=== PATIENT | female | born 1970 | race Native Hawaiian/Other Pacific Islander ===

== ENCOUNTER 2016-06-27 16:40 | Emergency (ER) | payer OTHER ==
[~2016-06-27] VITALS: Ht 160 cm; Wt 61.7 kg
[2016-06-27 17:33] LABS: PLATELET COUNT 197 K/uL (152-353)
[2016-06-27 17:49] LABS: POTASSIUM 4.1 mmol/L (3.6-5.2); SODIUM 135 mmol/L (136-145)
[2016-06-27 18:15] VITALS: BP 105/65; TEMP 97.6
== END 2016-06-27 18:15 | disposition home or self-care (01) ==
LOC: ED 16:40
DX: J02.0 Streptococcal pharyngitis (principal)
CPT/HCPCS: 36415; 80053; 85027; 87804; 87880; 99283

== ENCOUNTER 2016-08-12 20:36 | Outpatient (CLI) | payer OTHER | END 2016-08-12 20:46 | disposition short-term general hospital (02) | LOC: AMB 20:36 | DX: R55 Syncope and collapse (principal); R40.4 Transient alteration of awareness | CPT/HCPCS: A0425; A0427 ==

== ENCOUNTER 2016-08-12 20:48 | Emergency (ER) | payer OTHER ==
[~2016-08-12] VITALS: Ht 157.5 cm; Wt 59.0 kg
[2016-08-12 21:33] LABS: PLATELET COUNT 195 K/uL (152-353)
[2016-08-12 21:51] LABS: POTASSIUM 3.5 mmol/L (3.6-5.2)
[2016-08-12 22:24] VITALS: BP 120/62; TEMP 98.7
== END 2016-08-12 22:25 | disposition home or self-care (01) ==
LOC: ED 20:48
DX: F14.10 Cocaine abuse, uncomplicated (principal)
CPT/HCPCS: 80053; 80307; 81000; 85027; 93005; 96360; 99284; G0479

== ENCOUNTER 2016-08-20 18:52 | Emergency (ER) | payer OTHER ==
[~2016-08-20] VITALS: Ht 160 cm; Wt 52.2 kg
[2016-08-20 19:36] LABS: POTASSIUM 3.9 mmol/L (3.6-5.2)
[2016-08-20 19:39] LABS: PLATELET COUNT 314 K/uL (152-353)
[2016-08-20 20:16] VITALS: BP 07/69; TEMP 98.4
== END 2016-08-20 20:20 | disposition home or self-care (01) ==
LOC: ED 18:52
DX: F20.9 Schizophrenia, unspecified (principal); R45.1 Restlessness and agitation; N39.0 Urinary tract infection, site not specified
CPT/HCPCS: 80053; 80307; 80320; 80329; 81000; 85027; 87086; 87088; 99283; G0479

== ENCOUNTER 2016-08-22 12:58 | Outpatient (CLI) | payer OTHER | END 2016-08-22 13:14 | disposition short-term general hospital (02) | LOC: AMB 12:58 | DX: M25.572 Pain in left ankle and joints of left foot (principal); M25.472 Effusion, left ankle; X50.1XXA Overexertion from prolonged static or awkward postures, initial encounter; Y92.098 Other place in other non-institutional residence as the place of occurrence of the external cause | CPT/HCPCS: A0425; A0427 ==

== ENCOUNTER 2016-08-22 13:13 | Emergency (ER) | payer OTHER ==
[~2016-08-22] VITALS: Ht 160 cm; Wt 56.7 kg
[2016-08-22 13:40] VITALS: TEMP 97.8
[2016-08-22 15:05] VITALS: BP 128/82
== END 2016-08-22 15:06 | disposition home or self-care (01) ==
LOC: ED 13:13
DX: S93.402A Sprain of unspecified ligament of left ankle, initial encounter (principal); X50.1XXA Overexertion from prolonged static or awkward postures, initial encounter; Y92.098 Other place in other non-institutional residence as the place of occurrence of the external cause
CPT/HCPCS: 96372; 99283; J1885

== ENCOUNTER 2016-08-23 23:10 | Emergency (ER) | payer OTHER ==
[~2016-08-23] VITALS: Ht 165.1 cm; Wt 52.2 kg
[2016-08-23 23:36] LABS: PLATELET COUNT 249 K/uL (152-353)
[2016-08-23 23:39] LABS: POTASSIUM 3.7 mmol/L (3.6-5.2)
[2016-08-25 12:09] VITALS: BP 108/75; TEMP 98.1
== END 2016-08-25 12:09 | disposition home or self-care (01) ==
LOC: ED 23:10
PROVIDERS: Emergency Medicine
DX: R45.851 Suicidal ideations (principal)
CPT/HCPCS: 80053; 80307; 80320; 80329; 81000; 85027; 87088; 96372; 99285; G0479; J2060; J3486

== ENCOUNTER 2016-09-11 18:54 | Emergency (ER) | payer OTHER ==
[~2016-09-11] VITALS: Ht 160 cm; Wt 54.4 kg
[2016-09-11 20:34] VITALS: BP 110/84; TEMP 98.2
== END 2016-09-11 20:35 | disposition home or self-care (01) ==
LOC: ED 18:54
DX: M25.572 Pain in left ankle and joints of left foot (principal)
CPT/HCPCS: 99282; J2060; J2930

== ENCOUNTER 2016-09-12 13:05 | Emergency (ER) | payer OTHER ==
[~2016-09-12] VITALS: Ht 160 cm; Wt 58.1 kg
[2016-09-12 15:54] VITALS: BP 104/60; TEMP 98.3
== END 2016-09-12 14:30 | disposition home or self-care (01) ==
LOC: ED 13:05
DX: Z04.41 Encounter for examination and observation following alleged adult rape (principal)
CPT/HCPCS: 99283

== ENCOUNTER 2016-09-17 14:40 | Emergency (ER) | payer OTHER ==
[~2016-09-17] VITALS: Ht 172.7 cm; Wt 90.7 kg
[2016-09-17 15:15] VITALS: BP 110/68; TEMP 98.2
[2016-09-17 15:34] LABS: PLATELET COUNT 223 K/uL (152-353)
[2016-09-17 15:45] LABS: POTASSIUM 3.8 mmol/L (3.6-5.2); SODIUM 138 mmol/L (136-145)
== END 2016-09-18 08:07 | disposition home or self-care (01) ==
LOC: ED 14:40
PROVIDERS: Emergency Medicine
DX: F23 Brief psychotic disorder (principal)
CPT/HCPCS: 80053; 80307; 80320; 80329; 81000; 85027; 99285; G0479

== ENCOUNTER 2017-02-12 19:28 | Emergency (ER) | payer OTHER | END 2017-02-12 20:43 | disposition home or self-care (01) | LOC: ED 19:28 | DX: N89.8 Other specified noninflammatory disorders of vagina (principal); L29.9 Pruritus, unspecified ==

== ENCOUNTER 2017-02-13 15:47 | Emergency (ER) | payer OTHER ==
[~2017-02-13] VITALS: Ht 160 cm; Wt 68.0 kg
[2017-02-13 16:00] VITALS: BP 94/58; TEMP 97.8
== END 2017-02-13 16:26 | disposition home or self-care (01) ==
LOC: ED 15:47
DX: N89.8 Other specified noninflammatory disorders of vagina (principal)
CPT/HCPCS: 99281

== ENCOUNTER 2017-07-21 15:24 | Outpatient (CLI) | payer OTHER | END 2017-07-21 15:28 | disposition short-term general hospital (02) | LOC: AMB 15:24 | DX: M25.561 Pain in right knee (principal); M54.2 Cervicalgia; M54.5 Low back pain; V49.88XA Car occupant (driver) (passenger) injured in other specified transport accidents, initial encounter; Y92.488 Other paved roadways as the place of occurrence of the external cause | CPT/HCPCS: A0425; A0427 ==

== ENCOUNTER 2017-07-21 15:24 | Outpatient (CLI) | payer OTHER | END 2017-07-21 15:28 | disposition short-term general hospital (02) | LOC: AMB 15:24 | DX: M25.561 Pain in right knee (principal); M54.2 Cervicalgia; M54.5 Low back pain; V49.88XA Car occupant (driver) (passenger) injured in other specified transport accidents, initial encounter; Y92.488 Other paved roadways as the place of occurrence of the external cause | CPT/HCPCS: A0425; A0427 ==

== ENCOUNTER 2017-07-21 15:33 | Emergency (ER) | payer OTHER ==
[~2017-07-21] VITALS: Ht 160 cm; Wt 65.8 kg
[2017-07-21 15:46] VITALS: TEMP 97
[2017-07-21 17:52] VITALS: BP 122/74
== END 2017-07-21 17:54 | disposition home or self-care (01) ==
LOC: ED 15:33
DX: S80.01XA Contusion of right knee, initial encounter (principal); S00.93XA Contusion of unspecified part of head, initial encounter; S10.93XA Contusion of unspecified part of neck, initial encounter; S20.219A Contusion of unspecified front wall of thorax, initial encounter; R07.89 Other chest pain; R10.9 Unspecified abdominal pain; V49.50XA Passenger injured in collision with unspecified motor vehicles in traffic accident, initial encounter
CPT/HCPCS: 96372; 99283; J1885

== ENCOUNTER 2018-06-29 09:28 | Outpatient (CLI) | payer OTHER | END 2018-06-29 19:38 | disposition home or self-care (01) | LOC: MAMMO 09:28 | DX: Z12.31 Encounter for screening mammogram for malignant neoplasm of breast (principal) ==

== ENCOUNTER 2019-04-29 17:38 | Outpatient (CLI) | payer OTHER | END 2019-04-29 17:52 | disposition short-term general hospital (02) | LOC: AMB 17:38 | DX: R41.82 Altered mental status, unspecified (principal) | CPT/HCPCS: A0425; A0427 ==

== ENCOUNTER 2019-04-29 18:03 | Emergency (ER) | payer OTHER ==
[~2019-04-29] VITALS: Ht 160 cm; Wt 64.9 kg
[2019-04-29 19:42] LABS: SODIUM 133 mmol/L (136-145)
[2019-04-29 19:53] LABS: PLATELET COUNT 288 K/uL (152-353)
[2019-04-30 20:45] VITALS: BP 115/68; TEMP 97.8
[2019-05-01] MEDS ORDERED: QUETIAPINE100 MG PO (12:25)
[2019-05-01] MEDS ORDERED: TRAZODONE HYDR150 MG PO (12:25)
[2019-05-01] MEDS ORDERED: PAROXETINE30 MG PO (12:26)
== END 2019-04-30 20:45 | disposition home or self-care (01) ==
LOC: ED 18:03
PROVIDERS: Emergency Medicine
DX: F31.9 Bipolar disorder, unspecified (principal); R00.0 Tachycardia, unspecified
CPT/HCPCS: 80053; 80307; 81000; 82550; 82553; 84484; 85027; 87077; 87086; 87088; 87186; 93005; 96360; 96361; 96365; 96372; 99285; J0696; J3486

== ENCOUNTER 2019-05-01 10:28 | Emergency (ER) | payer OTHER ==
[~2019-05-01] VITALS: Ht 160 cm; Wt 64.9 kg
[2019-05-01 12:07] LABS: PLATELET COUNT 309 K/uL (152-353)
[2019-05-01] MEDS ORDERED: TRAZODONE HYDR150 MG PO (12:25)
[2019-05-01] MEDS ORDERED: QUETIAPINE100 MG PO (12:25)
[2019-05-01] MEDS ORDERED: PAROXETINE30 MG PO (12:26)
[2019-05-02 00:17] VITALS: BP 152/79; TEMP 97.9
== END 2019-05-02 00:17 | disposition other institution (70) ==
LOC: ED 10:28
PROVIDERS: Emergency Medicine
DX: F31.9 Bipolar disorder, unspecified (principal); F20.0 Paranoid schizophrenia
CPT/HCPCS: 80053; 80307; 80320; 80329; 81000; 81025; 85027; 87077; 87086; 87088; 87186; 93005; 96372; 99285; J3486

== ENCOUNTER 2019-06-18 09:55 | Emergency (ER) | payer OTHER ==
[~2019-06-18] VITALS: Ht 160 cm; Wt 54.4 kg
[~2019-06-18 09:55] MED LIST: PAROXETINE30 MG PO; QUETIAPINE100 MG PO; TRAZODONE HYDR150 MG PO
[2019-06-18 10:15] VITALS: TEMP 98.1
[2019-06-18 11:19] LABS: PLATELET COUNT 233 K/uL (152-353)
[2019-06-18 11:26] LABS: POTASSIUM 3.5 mmol/L (3.6-5.2)
[2019-06-18 14:15] VITALS: BP 128/89
== END 2019-06-18 14:22 | disposition home or self-care (01) ==
LOC: ED 09:55
PROVIDERS: Family Medicine
DX: E87.6 Hypokalemia (principal); E46 Unspecified protein-calorie malnutrition
CPT/HCPCS: 80053; 80307; 81000; 85027; 99283

== ENCOUNTER 2020-11-18 08:34 | Outpatient (CLI) | payer OTHER | END 2020-11-18 22:10 | disposition home or self-care (01) | LOC: US 08:34 | PROVIDERS: ATTEND Nurse Practitioner Family | DX: R10.13 Epigastric pain (principal) ==